=== PATIENT | male | born 1945 | race Hispanic/Latino ===

== ENCOUNTER 2017-01-16 15:15 | Emergency (ER) | payer MEDICARE, MEDICAID ==
[2017-01-16 15:59] LABS: #Basophils 0.1 thou/uL (0.0-0.2); #Eosinphils 0.1 thou/uL (0.0-0.7); #Lymphocytes 1.7 thou/uL (1.20-3.40); #Monocytes 0.5 thou/uL (0.11-0.59); #Neutrophils 4.5 thou/uL (1.40-6.50); %Basophils 0.9 % (0.0-1.0); %Eosinophils 0.8 % (0.0-10.0); %Lymphocytes 24.7 % (21.0-51.0); Mean Platelet Volume 9.1 fL (7.4-10.4); Red Blood Cell (RBC) Count 4.95 mill/uL (4.70-6.10); White Blood Cell (WBC) Count 6.8 thou/uL (4.8-10.8)
[2017-01-16] MEDS ORDERED: Iopamidol 370 76% 50 ML VIAL FS ONE (16:01)
[2017-01-16] MEDS ORDERED: ISOVUE-370 76%-LOCM 1 ML ONE (16:02)
--- NOTE | 2017-01-16 16:14 | RAD ---
CHEST ONE VIEW: History: Abdominal pain, dyspnea. Comparison: 07-21-13 FINDINGS: The cardiac silhouette is magnified by projection. Pulmonary vasculature is unremarkable. Mediastinu m is midline. There is no confluent airspace consolidation or evidence of pneumothorax. IMPRESSION: No active cardiopulmonary abnormalities are demonstrated. POS: [facility]
[2017-01-16 16:19] LABS: Lactic Acid - Sepsis 1.1 mmol/L (0.5-2.2)
[2017-01-16 16:23] LABS: ALT (SGPT) 9 U/L (8-55); AST (SGOT) 14 U/L (5-34); Alkaline Phosphatase 79 U/L (40-150); Anion Gap 17 mmol/L (10-20); BUN (Urea Nitrogen) 18 mg/dL (8.4-25.7); Bilirubin, Total 0.5 mg/dL (0.2-1.2); CK (CPK) 124 U/L (30-200); Calc. Creatinine Clearance 0 mL/min (70-130); Calcium 9.2 mg/dL (7.8-10.44); Carbon Dioxide 20 mmol/L (23-31); Chloride 104 mmol/L (98-107); Estimated GFR-MDRD 76; Globulin 3.6 g/dL (2.4-3.5); Lipase 37 U/L (8-78); Protein, Total 7.9 g/dL (5.8-8.1)
[2017-01-16 16:27] LABS: Troponin I Less than 0.010 ng/mL (< 0.028)
[2017-01-16] MEDS ORDERED: Ondansetron HCl/PF 4 MG/2 ML Vial ONE ×2 (16:39→16:45)
[2017-01-16 17:02] LABS: Bilirubin Negative (Negative); Blood, Urine Trace (Negative); Glucose, Urine (Dipstick) Negative (Negative); Ketone, Urine 15 mg/dL (Negative); Nitrite Negative (Negative); Protein, Urine (Dipstick) Negative (Neg-Trace)
[2017-01-16 17:05] LABS: Bacteria/HPF None Seen HPF (None Seen); Hyaline Casts/LPF 0-3 HYALINE CAST LPF (0-3 Hyaline); RBC/HPF 0-3 HPF (0-3); Squamous Epithelial None Seen HPF (0-3); WBC/HPF None Seen HPF (0-3)
--- NOTE | 2017-01-16 18:38 | CT ---
CT OF THE ABDOMEN AND PELVIS WITH IV CONTRAST 01/16/17 COMPARISON: Comparisons are made with a prior multiphase exam dated 02/08/09 from [facility] [place]. FINDINGS: There is a small sub 4 mm subpleural pulmonary nodule seen within the right middle lobe adjacent to the right minor fissure. Additional small sub 4 mm pulmonary nodule seen within the right lower lobe on the anterolateral segment. There is some additional small pulmonary nodules within the left lowe r lobe. These were not definitely present in 2008. No focal hepatic lesion is evident. The spleen, pancreas and adrenal glands are normal appearing. Th e kidneys are normal appearing. The small bowel is of normal caliber. The prostate is mildly enlarged measuring 5.4 cm. There are fat containing left sided inguinal herni a. There are scattered diverticula involving the colon without overt evidence of active diverticulit is. There is a moderate amount of retained stool within the colon. The appendix is likely surgically absent as there is surgical clips near the cecal apex. No drainable fluid collection is evident. There is diffuse osteopenia. There is scattered degenerative change. No definite acute osseous abnor mality is evident. There is a healed posterior right 11th rib fracture. IMPRESSION: 1. Small 4 mm and less pulmonary nodules within both lower lobes are not specifically suspiciou s. Given the patient's age and any sort of risk factors, recommend consideration for a followup CT o f the thorax to evaluate for additional pulmonary nodules may be helpful to provide followup recomme ndations for the smaller pulmonary nodules identified on this exam. 2. Colonic diverticulosis without evidence of active diverticulitis. There is a moderate amount of retained stool within the colon. 3. Prostate enlargement. 4. Fat containing left inguinal hernia. 5. Other chronic findings as above. POS: [facility]
--- NOTE | 2017-01-26 12:55 | EKG ---
Test Reason : Blood Pressure : / mmHG Vent. Rate : 071 BPM Atrial Rate : 071 BPM P-R Int : 154 ms QRS Dur : 088 ms QT Int : 434 ms P-R-T Axes : 056 065 019 degrees QTc Int : 471 ms Normal sinus rhythm Normal ECG Confirmed by PORTIA CANTOR MD ([id number]), commercial production editor JUSTIN BYRD ([id number] on 01/26/2017 12:54:38 PM Referred By: Confirmed By:PORTIA CANTOR MD
== END 2017-01-16 18:45 | disposition home or self-care (01) ==
LOC: ERS 15:15
DX: R11.2 Nausea with vomiting, unspecified (principal); R10.13 Epigastric pain; R10.12 Left upper quadrant pain; R10.32 Left lower quadrant pain; F41.9 Anxiety disorder, unspecified; E78.5 Hyperlipidemia, unspecified; I10 Essential (primary) hypertension; Z79.899 Other long term (current) drug therapy
CPT/HCPCS: 71010; 74177; 80053; 81003; 81015; 82550; 82553; 83605; 83690; 84484; 85025; 93005; 96361; 96374; J2405

== ENCOUNTER 2018-03-04 18:35 | Emergency (ER) | payer MEDICARE, MEDICAID ==
[2018-03-04 19:18] LABS: #Basophils 0.1 thou/uL (0.0-0.2); #Eosinphils 0.1 thou/uL (0.0-0.7); #Lymphocytes 2.8 thou/uL (1.20-3.40); #Monocytes 0.6 thou/uL (0.11-0.59); #Neutrophils 4.1 thou/uL (1.40-6.50); %Basophils 1.2 % (0.0-1.0); %Eosinophils 1.8 % (0.0-10.0); %Lymphocytes 36.3 % (21.0-51.0); %Monocytes 7.6 % (0.0-10.0); %Neutrophils 53.2 % (42.0-75.0); Hemoglobin 13.8 g/dL (14.0-18.0); Mean Corpuscular HGB CONC 33.4 g/dL (32.0-36.0); Mean Corpuscular Hemoglobin 26.6 pg (27.0-31.0); Mean Corpuscular Volume 79.6 fL (78.0-98.0); Mean Platelet Volume 10.1 fL (7.4-10.4); Platelet Count 167 thou/uL (130-400); RBC Distribution Width 11.8 % (11.5-14.5); Red Blood Cell (RBC) Count 5.18 mill/uL (4.70-6.10); White Blood Cell (WBC) Count 7.7 thou/uL (4.8-10.8)
[2018-03-04 19:28] LABS: Bilirubin Negative (Negative); Blood, Urine Trace (Negative); Clarity Clear (Clear); Glucose, Urine (Dipstick) Negative (Negative); Leukocyte Negative (Negative); Nitrite Negative (Negative); Protein, Urine (Dipstick) Negative (Neg-Trace); Specific Gravity, Urine 1.015 (1.005-1.030); Urobilinogen 0.2 mg/dL (0.2-1.0)
[2018-03-04 19:31] LABS: Bacteria/HPF Rare-Few HPF (None Seen); RBC/HPF 0-3 HPF (0-3); Squamous Epithelial None Seen HPF (0-3); WBC/HPF None Seen HPF (0-3)
[2018-03-04 19:34] LABS: ALT (SGPT) 10 U/L (8-55); AST (SGOT) 13 U/L (5-34); Albumin 4.5 g/dL (3.4-4.8); Alkaline Phosphatase 77 U/L (40-150); Anion Gap 14 mmol/L (10-20); BUN (Urea Nitrogen) 10 mg/dL (8.4-25.7); Bilirubin, Total 0.4 mg/dL (0.2-1.2); Calc. Creatinine Clearance 0 mL/min (70-130); Calcium 9.5 mg/dL (7.8-10.44); Carbon Dioxide 25 mmol/L (23-31); Chloride 105 mmol/L (98-107); Estimated GFR-MDRD 80; Globulin 3.7 g/dL (2.4-3.5); Glucose 93 mg/dL (83-110); Lipase 50 U/L (8-78); Potassium 3.4 mmol/L (3.5-5.1); Protein, Total 8.2 g/dL (5.8-8.1); Sodium 141 mmol/L (136-145)
[2018-03-04] MEDS ORDERED: Potassium Chloride 20 MEQ TAB ONE (20:28)
== END 2018-03-04 20:37 | disposition home or self-care (01) ==
LOC: SCSER 18:35
DX: E87.6 Hypokalemia (principal); I10 Essential (primary) hypertension; F41.9 Anxiety disorder, unspecified; E78.5 Hyperlipidemia, unspecified; Z79.899 Other long term (current) drug therapy
CPT/HCPCS: 80053; 81003; 81015; 83690; 83735; 84484; 85025; 93005

== ENCOUNTER 2018-06-28 17:51 | Emergency (ER) | payer MEDICARE, MEDICAID ==
[~2018-06-28 17:51] MED LIST: Iopamidol 300 61% 100 ML VIAL FS ONE
[2018-06-28] MEDS ORDERED: Pantoprazole 40 MG VIAL ONE (18:08)
[2018-06-28] MEDS ORDERED: Ondansetron PF 4 MG/2 ML Vial ONE (18:08)
[2018-06-28 18:23] LABS: #Basophils 0.1 thou/uL (0.0-0.2); #Eosinphils 0.1 thou/uL (0.0-0.7); #Lymphocytes 2.9 thou/uL (1.20-3.40); #Monocytes 0.7 thou/uL (0.11-0.59); #Neutrophils 4.5 thou/uL (1.40-6.50); %Basophils 1.2 % (0.0-1.0); %Eosinophils 1.4 % (0.0-10.0); %Lymphocytes 34.6 % (21.0-51.0); %Monocytes 8.5 % (0.0-10.0); %Neutrophils 54.3 % (42.0-75.0); Hemoglobin 13.4 g/dL (14.0-18.0); Mean Corpuscular HGB CONC 32.8 g/dL (32.0-36.0); Mean Corpuscular Hemoglobin 27.3 pg (27.0-31.0); Mean Corpuscular Volume 83.3 fL (78.0-98.0); Mean Platelet Volume 10.5 fL (7.4-10.4); Platelet Count 174 thou/uL (130-400); RBC Distribution Width 12.5 % (11.5-14.5); White Blood Cell (WBC) Count 8.2 thou/uL (4.8-10.8)
[2018-06-28 18:41] LABS: ALT (SGPT) 11 U/L (8-55); AST (SGOT) 14 U/L (5-34); Albumin 4.3 g/dL (3.4-4.8); Alkaline Phosphatase 73 U/L (40-150); Anion Gap 12 mmol/L (10-20); BUN (Urea Nitrogen) 13 mg/dL (8.4-25.7); Bilirubin, Total 0.2 mg/dL (0.2-1.2); Calc. Creatinine Clearance 0 mL/min (70-130); Calcium 9.3 mg/dL (7.8-10.44); Carbon Dioxide 26 mmol/L (23-31); Chloride 104 mmol/L (98-107); Estimated GFR-MDRD 78; Globulin 3.3 g/dL (2.4-3.5); Glucose 113 mg/dL (83-110); Lipase 36 U/L (8-78); Potassium 3.3 mmol/L (3.5-5.1); Protein, Total 7.6 g/dL (5.8-8.1); Sodium 139 mmol/L (136-145)
[2018-06-28 19:08] LABS: Bilirubin Negative (Negative); Blood, Urine Trace (Negative); Clarity Clear (Clear); Glucose, Urine (Dipstick) Negative (Negative); Leukocyte Negative (Negative); Nitrite Negative (Negative); Protein, Urine (Dipstick) Negative (Neg-Trace); Specific Gravity, Urine 1.015 (1.005-1.030); Urobilinogen 0.2 mg/dL (0.2-1.0)
[2018-06-28 19:14] LABS: RBC/HPF 0-3 HPF (0-3); Squamous Epithelial 0-3 HPF (0-3); WBC/HPF 0-3 HPF (0-3)
[2018-06-28 19:15] LABS: Bacteria/HPF None Seen HPF (None Seen)
--- NOTE | 2018-06-28 20:15 | CT ---
CT abdomen and pelvis with IV and oral contrast HISTORY: Abdominal pain. Nausea and vomiting. COMPARISON: 01/16/2017. FINDINGS: Mild atelectasis at the lung bases. Small cysts of each kidney are stable. Calcification th roughout the arterial structures. Diverticula arise from the colon without adjacent inflammation. Appendix is surgically absent. No evidence of bowel obstruction. IMPRESSION: No evidence of bowel obstruction or other acute abnormalities. Chronic findings are stabl e. Atherosclerosis.
== END 2018-06-28 20:39 | disposition home or self-care (01) ==
LOC: SCSER 17:51
DX: R10.9 Unspecified abdominal pain (principal); E78.5 Hyperlipidemia, unspecified; I10 Essential (primary) hypertension; F41.9 Anxiety disorder, unspecified; Z79.899 Other long term (current) drug therapy
CPT/HCPCS: 74177; 80053; 81003; 81015; 83605; 83690; 84484; 85025; 93005; 96374; 96375; C9113; J2405; Q9967

== ENCOUNTER 2018-07-20 11:54 | Emergency (ER) | payer MEDICARE, MEDICAID ==
[2018-07-20] MEDS ORDERED: Ketorolac Tromethamine 60 MG/2 ML VIAL ONE (13:18)
--- NOTE | 2018-07-20 13:58 | CT ---
CT CERVICAL SPINE: HISTORY: Neck pain. FINDINGS: Axial images were obtained with coronal and sagittal reconstructions. CT images demonstrate multilevel facet hypertrophy. There is disc space height loss at C5-6 and C6-7. 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 There is also facet fusion congenitally at C2-3,. Findings suggest extensive chronic changes of spondylosis. No acute cervical spine abnormality is seen. IMPRESSION: Multilevel changes of spondylosis. No evidence of acute cervical spine abnormality seen. Transcribed Date/Time: 07/20/2018 2:04 PM
== END 2018-07-20 14:15 | disposition home or self-care (01) ==
LOC: SCSER 11:54
DX: S16.1XXA Strain of muscle, fascia and tendon at neck level, initial encounter (principal); M50.322 Other cervical disc degeneration at C5-C6 level; M50.323 Other cervical disc degeneration at C6-C7 level; F41.9 Anxiety disorder, unspecified; I10 Essential (primary) hypertension; E78.5 Hyperlipidemia, unspecified; X58.XXXA Exposure to other specified factors, initial encounter
CPT/HCPCS: 72125; 96372; J1885